=== PATIENT | female | born 1935 | race Native Hawaiian/Other Pacific Islander ===

== ENCOUNTER 2020-10-16 14:43 | Outpatient (CLI) | payer OTHER ==
[2020-10-16 15:12] LABS: POTASSIUM 5.2 mmol/L (3.6-5.2)
== END 2020-10-16 19:40 | disposition home or self-care (01) ==
LOC: LAB 14:43
PROVIDERS: ATTEND Internal Medicine
DX: N17.8 Other acute kidney failure (principal); E86.0 Dehydration
CPT/HCPCS: 80053

== ENCOUNTER 2022-10-07 14:00 | Outpatient (CLI) | payer OTHER ==
[2022-10-07 14:29] LABS: POTASSIUM 5.5 mmol/L (3.6-5.2)
== END 2022-10-07 20:26 | disposition home or self-care (01) ==
LOC: LAB 14:00
PROVIDERS: ATTEND Family Medicine
DX: N18.31 Chronic kidney disease, stage 3a (principal); E87.5 Hyperkalemia
CPT/HCPCS: 80048